=== PATIENT | male | born 1965 | race Caucasian/White ===

== ENCOUNTER 2019-03-21 09:03 | Inpatient (IN) | payer OTHER ==
[2019-03-21 10:59] VITALS: BMI 25.0
--- NOTE | 2019-03-21 13:38 | HP ---
COWS - Scale Resting Pulse: 0= [place] 80 or Below Restless Observation: 1= Difficult to Sit Still Pupil Size: 1= Pupils >than Normal Bone or Joint Aches: 2= Severe Diffuse Aches Runny Nose/ Eye Tearin= Runny Nose/Eyes GI Upset > 30mins: 1= Stomach Cramp Tremor Observation: 2= Slight Tremor Visible Yawning Observation: 1= 1-2x During Session Anxiety or Irritability: 2=Irritable/Anxious Goose Flesh Skin: 0=Smooth Skin CIWA Score Nausea/Vomitin Muscle Tremors: 3 Anxiety: 2 Agitation: 1-Slight > Activity Paroxysmal Sweats: 2 Orientation: 0-Oriented Tacttile Disturbances: 1-Very Mild Itch/Numbness Auditory Disturbances: 0-None Visual Disturbances: 2-Mild Sensitivity Headache: 0-None Present CIWA-Ar Total Score: 13 - Admission Criteria OASAS Guidelines: Admission for Medically Managed Detox: Requires at least one of the followin. CIWA greater than 12 2. Seizures within the past 24 hours 3. Delirium tremens within the past 24 hours 4. Hallucinations within the past 24 hours 5. Acute intervention needed for co occurring medical disorder 6. Acute intervention needed for co occurring psychiatric disorder 7. Severe withdrawal that cannot be handled at a lower level of care (continued vomiting, continued diarrhea, abnormal vital signs) requiring intravenous medication and/or fluids 8. Patient presents the following: CIWA greater than 12 Admission Criteria Met: Admission criteria met Admission ROS [facility] Chief Complaint: i gotta get clean Allergies/Adverse Reactions: Allergies Allergy/AdvReac Type Severity Reaction Status Date / Time No Known Allergies Allergy Verified 03/21/19 10:52 History of Present Illness: [place] has been using 15-20 bags heroin daily iv 2 y ago was abstinent x 1 month sp detox is contemplating methadone began using heroin 3 y ago, previously used rx opiates cocaine and etoh use since age [age] periodically felt problematic Exam Limitations: No Limitations - Ebola screening Have you traveled outside of the country in the last 21 days: No Have you had contact with anyone from an Ebola affected area: No - Review of Systems Constitutional: Chills, Malaise EENT: reports: No Symptoms Reported Respiratory: reports: No Symptoms reported Cardiac: reports: No Symptoms Reported GI: reports: Diarrhea, Nausea : reports: No Symptoms Reported Musculoskeletal: reports: Joint Pain Integumentary: reports: Other (r ac tract) Neuro: reports: No Symptoms reported Endocrine: reports: No Symptoms Reported Hematology: reports: No Symptoms Reported Psychiatric: reports: Anxious Patient History - Patient Medical History Hx Anemia: No Hx Asthma: No Hx Chronic Obstructive Pulmonary Disease (COPD): No Hx Cancer: No Hx Cardiac Disorders: No Hx Congestive Heart Failure: No Hx Hypertension: No Hx Hypercholesterolemia: No Hx Pacemaker: No HX Cerebrovascular Accident: No Hx Seizures: No Hx Dementia: No Hx Diabetes: No Hx Gastrointestinal Disorders: No Hx Liver Disease: No Hx Genitourinary Disorders: No Hx Sexually Transmitted Disorders: No Hx Renal Disease (ESRD): No Hx Thyroid Disease: No Hx Human Immunodeficiency Virus (HIV): No Hx Hepatitis C: No Hx Depression: No Hx Suicide Attempt: No Hx Bipolar Disorder: No Hx Schizophrenia: No - Patient Surgical History Past Surgical History: Yes Hx Orthopedic Surgery: Yes (fusion) - PPD History Previous Implant?: Yes Documented Results: Negative w/o proof - Smoking Cessation Smoking history: Current every day smoker Have you smoked in the past 12 months: Yes Aproximately how many cigarettes per day: 30 Initiated information on smoking cessation: Yes 'Breaking Loose' booklet given: 03/21/19 - Substance & Tx. History Hx Alcohol Use: Yes Hx Substance Use: Yes Substance Use Type: Alcohol, Cocaine, Opiates Hx Substance Use Treatment: Yes (several detox, mmtp x 1) - Substances abused Alcohol Substance route: Oral Frequency: Daily Amount used: 1 pint vodka Age of first use: 15 Date of last use: 03/21/19 Heroin Substance route: Injection Frequency: Daily Amount used: 15-20 bags Age of first use: 48 Date of last use: 03/21/19 Family Disease History - Family Disease History Family Disease History: Other: Father (etoh abstinent), Brother (danielle) Admission Physical Exam BHS - Vital Signs Vital Signs: Vital Signs - 24 hr 03/21/19 10:53 Temperature 97.3 F L Pulse Rate 68 Respiratory 17 Rate Blood Pressure 116/82 - Physical General Appearance: Yes: No Apparent Distress, Irritable, Sweating, Anxious HEENTM: Yes: EOMI, Normocephalic Respiratory: Yes: Chest Non-Tender, Lungs Clear Neck: Yes: Within Normal Limits Breast: Yes: Breast Exam Deferred Cardiology: Yes: Regular Rhythm, Regular Rate, S1, S2 Abdominal: Yes: Within Normal Limits Genitourinary: Yes: Other (def) Back: Yes: Within Normal Limits Musculoskeletal: Yes: Within Normal Limits Extremities: Yes: Within Normal Limits 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
[2019-03-21] MEDS ORDERED: BISMUTH SUBSALICYLATE 262 MG/15 ML BTL PO PRN (13:49)
[2019-03-21] MEDS ORDERED: METHOCARBAMOL 500 MG TABLET PO PRN (13:49)
[2019-03-21] MEDS ORDERED: MENTHOL/PHENOL 1 EACH UD MM PRN (13:49)
[2019-03-21] MEDS ORDERED: chlordiazePOXIDE HCL 25 MG CAPSULE PO PRN (13:49)
[2019-03-21] MEDS ORDERED: MAGNESIUM HYDROX 2400MG/30ML ORAL SUSPENSION 30 ML CUP PO PRN (13:49)
[2019-03-21] MEDS ORDERED: ACETAMINOPHEN 325 MG TABLET (FP) PO PRN ×2 (13:49)
[2019-03-21] MEDS ORDERED: cloNIDine HCL 0.1 MG TABLET PO PRN (13:49)
[2019-03-21] MEDS ORDERED: hydrOXYzine HCL 25 MG TABLET (FP) PO PRN (13:49)
[2019-03-21] MEDS ORDERED: IBUPROFEN 400 MG TABLET (FP) PO PRN (13:49)
[2019-03-21] MEDS ORDERED: MAG HYDROX/AL HYDROX/SIMETH 30 ML UNIT-DOSE CUP PO PRN (13:49)
[2019-03-21] MEDS ORDERED: MAGNESIUM CITRATE 300 ML BOTTLE PO PRN (13:49)
[2019-03-21] MEDS ORDERED: METHADONE HCL 10 MG TABLET (FOR DETOX USE ONLY) PO ONE (14:35)
[2019-03-21] MEDS: chlordiazePOXIDE HCL 25 MG CAPSULE PO SCH ×2 (17:53→22:25)
[2019-03-21] MEDS: THIAMINE HCL 100 MG TABLET (FP) PO SCH (22:25)
[2019-03-21] MEDS: MELATONIN 5 MG TABLETS PO PRN (22:26)
[2019-03-22] MEDS: chlordiazePOXIDE HCL 25 MG CAPSULE PO SCH ×4 (05:13→23:08)
[2019-03-22] MEDS ORDERED: METHADONE HCL 10 MG TABLET (FOR DETOX USE ONLY) ONE (09:30)
[2019-03-22] MEDS ORDERED: METHADONE HCL 5 MG TABLET (FOR DETOX USE ONLY) ONE (09:30)
--- NOTE | 2019-03-22 09:56 | PN ---
[facility] CIWA - CIWA Score Nausea/Vomitin-Mild Nausea/No Vomiting Muscle Tremors: 2 Anxiety: 3 Agitation: 1-Slight > Activity Paroxysmal Sweats: 3 Orientation: 0-Oriented Tacttile Disturbances: 2-Mild Itch/Numbness/Burn Auditory Disturbances: 0-None Visual Disturbances: 0-None Headache: 0-None Present CIWA-Ar Total Score: 12 [facility] COWS - Scale Resting Pulse: 0= [place] 80 or Below Sweatin= Chills/Flushing Restless Observation: 1= Difficult to Sit Still Pupil Size: 1= Pupils >than Normal Bone or Joint Aches: 2= Severe Diffuse Aches Runny Nose/ Eye Tearin= Nasal Congestion GI Upset > 30mins: 1= Stomach Cramp Tremor Observation of Outstretched Hands: 2= Slight Tremor Visible Yawning Observation: 0= None Anxiety or Irritability: 2=Irritable/Anxious Goose Flesh Skin: 0=Smooth Skin COWS Score: 11 [facility] Progress Note (SOAP) Subjective: interrupted sleep, sweats , shakes, lbp, achy Objective: 03/22/19 09:54 Vital Signs Temperature 98.1 F 03/22/19 09:16 Pulse Rate 71 03/22/19 09:16 Respiratory Rate 18 03/22/19 09:16 Blood Pressure 107/60 03/22/19 09:16 O2 Sat by Pulse Oximetry (%) labs pending pt aox3 , lying in bed appearing uncomfortable Assessment: 03/22/19 09:56 withdrawal sx's lbp Plan: cont. detox increase fluids lidocaine patch/d motrin prn flexeril
[2019-03-22] MEDS ORDERED: METHADONE (DETOX) 20 MG, METHADONE (DETOX) 5 MG PO ONE (10:00)
[2019-03-22] MEDS: PRENATAL VITAMINS W/ FOLIC ACID TABLET (FP) PO SCH (10:42)
[2019-03-22] MEDS: LIDOCAINE 5% TOPICAL PATCH TP SCH (11:08)
[2019-03-22 12:16] LABS: ALBUMIN 3.7 g/dl (3.4-5.0); BILIRUBIN,TOTAL 0.6 mg/dL (0.2-1); BLOOD UREA NITROGEN 14.6 mg/dL (7-18); CALCIUM 9.5 mg/dL (8.5-10.1); CREATININE 0.8 mg/dL (0.55-1.3)
[2019-03-22 12:17] LABS: HEMATOCRIT 41.9 % (35.4-49); HEMOGLOBIN 14.5 GM/dL (11.7-16.9); MCH 29.5 pg (25.7-33.7); MCHC 34.6 g/dl (32.0-35.9); MEAN CELL VOLUME 85.3 fl (80-96); MEAN PLT VOLUME 8.3 fl (7.5-11.1); PLATELET COUNT 366 K/MM3 (134-434); RBC 4.91 M/mm3 (4.00-5.60); RDW 13.4 % (11.9-15.9)
[2019-03-22] MEDS ORDERED: CYCLOBENZAPRINE HCL 5 MG TABLET PO SCH (14:00)
[2019-03-22] MEDS: THIAMINE HCL 100 MG TABLET (FP) PO SCH (23:08)
[2019-03-22] MEDS: LIDOCAINE PATCH REMOVAL MC SCH (23:09)
[2019-03-23] MEDS: chlordiazePOXIDE HCL 25 MG CAPSULE PO SCH ×4 (05:39→22:54)
[2019-03-23] MEDS ORDERED: METHADONE HCL 10 MG TABLET (FOR DETOX USE ONLY) PO ONE (10:00)
[2019-03-23] MEDS: PRENATAL VITAMINS W/ FOLIC ACID TABLET (FP) PO SCH (10:04)
[2019-03-23] MEDS: LIDOCAINE 5% TOPICAL PATCH TP SCH (10:04)
--- NOTE | 2019-03-23 11:26 | PN ---
S CIWA - CIWA Score Nausea/Vomitin-No Nausea/No Vomiting Muscle Tremors: 2 Anxiety: 2 Agitation: 0-Normal Activity Paroxysmal Sweats: 3 Orientation: 0-Oriented Tacttile Disturbances: 0-None Auditory Disturbances: 0-None Visual Disturbances: 0-None Headache: 2-Mild CIWA-Ar Total Score: 9 S COWS - Scale Resting Pulse: 0= [place] 80 or Below Sweatin= Beads of Sweat on Face Restless Observation: 1= Difficult to Sit Still Pupil Size: 0= Normal to Room Light Bone or Joint Aches: 0= None Runny Nose/ Eye Tearin= None GI Upset > 30mins: 0= None Tremor Observation of Outstretched Hands: 2= Slight Tremor Visible Yawning Observation: 1= 1-2x During Session Anxiety or Irritability: 2=Irritable/Anxious Goose Flesh Skin: 0=Smooth Skin COWS Score: 9 S Progress Note (SOAP) Subjective: c/o sweats, anxiety/irritability, headache, and shakes. Objective: 03/23/19 11:26 Vital Signs 03/23/19 03/23/19 03/23/19 03:30 08:14 09:40 Temperature 97.7 F 97.3 F L Pulse Rate 67 76 Respiratory 18 18 18 Rate Blood Pressure 122/60 121/77 Lab Results WBC 8.0 K/mm3 (4.0-10.0) 03/22/19 07:00 RBC 4.91 M/mm3 (4.00-5.60) 03/22/19 07:00 Hgb 14.5 GM/dL (11.7-16.9) 03/22/19 07:00 Hct 41.9 % (35.4-49) 03/22/19 07:00 MCV 85.3 fl (80-96) 03/22/19 07:00 MCHC 34.6 g/dl (32.0-35.9) 03/22/19 07:00 RDW 13.4 % (11.9-15.9) 03/22/19 07:00 Plt Count 366 K/MM3 (134-434) 03/22/19 07:00 Sodium 143 mmol/L (136-145) 03/22/19 07:00 Potassium 4.0 mmol/L (3.5-5.1) 03/22/19 07:00 Chloride 110 mmol/L (98-107) H 03/22/19 07:00 Carbon Dioxide 27 mmol/L (21-32) 03/22/19 07:00 Anion Gap 6 MMOL/L (8-16) L 03/22/19 07:00 BUN 14.6 mg/dL (7-18) 03/22/19 07:00 Creatinine 0.8 mg/dL (0.55-1.3) 03/22/19 07:00 Random Glucose 105 mg/dL (74-106) 03/22/19 07:00 Calcium 9.5 mg/dL (8.5-10.1) 03/22/19 07:00 Labs noted. Assessment: 03/23/19 11:26 AOX3, in no acute distress. Full ROM, ambulating in the unit. withdrawal symptoms. Plan: continue detox.
[2019-03-23] MEDS: LIDOCAINE PATCH REMOVAL MC SCH (22:53)
[2019-03-23] MEDS: MELATONIN 5 MG TABLETS PO PRN (22:54)
[2019-03-23] MEDS: THIAMINE HCL 100 MG TABLET (FP) PO SCH (22:54)
[2019-03-24] MEDS ORDERED: chlordiazePOXIDE HCL 10 MG CAPSULE PO PRN
[2019-03-24] MEDS: MELATONIN 5 MG TABLETS PO PRN (01:35)
[2019-03-24] MEDS: chlordiazePOXIDE HCL 10 MG CAPSULE PO SCH ×4 (06:09→22:27)
[2019-03-24] MEDS ORDERED: METHADONE HCL 10 MG TABLET (FOR DETOX USE ONLY) ONE (09:04)
[2019-03-24] MEDS ORDERED: METHADONE HCL 5 MG TABLET (FOR DETOX USE ONLY) ONE (09:04)
[2019-03-24] MEDS ORDERED: METHADONE (DETOX) 10 MG, METHADONE (DETOX) 5 MG PO ONE (10:00)
[2019-03-24] MEDS: PRENATAL VITAMINS W/ FOLIC ACID TABLET (FP) PO SCH (10:35)
[2019-03-24] MEDS: LIDOCAINE 5% TOPICAL PATCH TP SCH (10:35)
--- NOTE | 2019-03-24 13:17 | PN ---
[facility] COWS - Scale Resting Pulse: 0= [place] 80 or Below Sweatin= Chills/Flushing Restless Observation: 1= Difficult to Sit Still Pupil Size: 2= Moderately Dilated Bone or Joint Aches: 1= Mild Discomfort Runny Nose/ Eye Tearin= Nasal Congestion GI Upset > 30mins: 0= None Tremor Observation of Outstretched Hands: 1= Tremor [place], Not Seen Yawning Observation: 0= None Anxiety or Irritability: 2=Irritable/Anxious Goose Flesh Skin: 0=Smooth Skin COWS Score: 9 [facility] Progress Note (SOAP) Subjective: Patient c/o chills, anxiety, feeling tired and body aches. Objective: 03/24/19 13:16 Vital Signs Temperature 96.8 F L 03/24/19 09:35 Pulse Rate 60 03/24/19 09:35 Respiratory Rate 18 03/24/19 09:35 Blood Pressure 100/68 03/24/19 09:35 O2 Sat by Pulse Oximetry (%) Laboratory Tests 03/22/19 03/22/19 03/22/19 07:00 07:00 07:00 WBC 8.0 RBC 4.91 Hgb 14.5 Hct 41.9 MCV 85.3 MCH 29.5 MCHC 34.6 RDW 13.4 Plt Count 366 MPV 8.3 Sodium 143 Potassium 4.0 Chloride 110 H Carbon Dioxide 27 Anion Gap 6 L BUN 14.6 Creatinine 0.8 Est GFR (CKD-EPI)AfAm 119.88 Est GFR (CKD-EPI)NonAf 103.43 Random Glucose 105 Calcium 9.5 Total Bilirubin 0.6 AST 12 L ALT 20 Alkaline Phosphatase 83 Total Protein 7.0 Albumin 3.7 RPR Titer Nonreactive PE: alert and oriented x 3 skin warm, mild facial moisture pupils moderately dilated, eoms intact bl ext full rom, mild tremors amb ad cheko Assessment: 03/24/19 13:17 withdrawal sx Plan: continue detox encourage fluids monitor
[2019-03-24] MEDS: LIDOCAINE PATCH REMOVAL MC SCH (22:27)
[2019-03-24] MEDS: THIAMINE HCL 100 MG TABLET (FP) PO SCH (22:27)
[2019-03-25] MEDS ORDERED: chlordiazePOXIDE HCL 10 MG CAPSULE PO SCH (05:00)
[2019-03-25 09:20] VITALS: BP 109/72; PULSE 70; TEMP 97.7
--- NOTE | 2019-03-25 09:57 | PN ---
S Progress Note Note: pt arrived in withdrawals pt c/o of withdrawals symptoms and aggressive symptomatic management attempted however, pt in spite of extensive motivational counseling regarding the risk of relapse, seizures, DT, OD and or loss, pt chose to sign out AMA.
[2019-03-25] MEDS ORDERED: METHADONE HCL 10 MG TABLET (FOR DETOX USE ONLY) PO ONE (10:00)
--- NOTE | 2019-03-25 10:00 | DS ---
[facility] Detox Discharge Summary Admission Date: 03/21/19 - History Present History: Alcohol Dependence, Opioid Dependence - Physical Exam Results Vital Signs: Vital Signs Temperature 97.7 F 03/25/19 09:19 Pulse Rate 70 03/25/19 09:19 Respiratory Rate 18 03/25/19 09:19 Blood Pressure 109/72 03/25/19 09:19 O2 Sat by Pulse Oximetry (%) Pertinent Admission Physical Exam Findings: pt arrived in withdrawals Laboratory Tests 03/22/19 03/22/19 03/22/19 07:00 07:00 07:00 WBC 8.0 RBC 4.91 Hgb 14.5 Hct 41.9 MCV 85.3 MCH 29.5 MCHC 34.6 RDW 13.4 Plt Count 366 MPV 8.3 Sodium 143 Potassium 4.0 Chloride 110 H Carbon Dioxide 27 Anion Gap 6 L BUN 14.6 Creatinine 0.8 Est GFR (CKD-EPI)AfAm 119.88 Est GFR (CKD-EPI)NonAf 103.43 Random Glucose 105 Calcium 9.5 Total Bilirubin 0.6 AST 12 L ALT 20 Alkaline Phosphatase 83 Total Protein 7.0 Albumin 3.7 RPR Titer Nonreactive today pt is aaox3 very little shakes noted pt signed out ama - Treatment Patient has Accepted a Rehab Referral to: pt declined rehab; referral provided - Medication Discharge Medications: Ambulatory Orders NK [No Known Home Medication] 03/21/19 - Diagnosis (1) Alcohol dependence with uncomplicated withdrawal Current Visit: Yes Status: Chronic (2) Opioid dependence with withdrawal Current Visit: Yes Status: Chronic - AMA Did Patient Leave Against Medical Advice: Yes (going home; declined aftercare referral provided)
[2019-03-25] MEDS ORDERED: ONDANSETRON *ODT* 4 MG TABLET SL PRN (10:54)
[2019-03-26] MEDS ORDERED: chlordiazePOXIDE HCL 10 MG CAPSULE PO ONE (05:00)
[2019-03-26] MEDS ORDERED: METHADONE HCL 5 MG TABLET (FOR DETOX USE ONLY) PO ONE (06:00)
== END 2019-03-25 09:55 | disposition left against medical advice (07) | DRG 770 ==
LOC: YASAS 09:03 → Y6N 14:30
PROVIDERS: ADMIT Surgery; ATTEND Surgery
PROC: HZ2ZZZZ Detoxification Services for Substance Abuse Treatment (ICD-10-PCS; principal; 2019-03-21)
DX: F11.23 Opioid dependence with withdrawal (principal); F10.230 Alcohol dependence with withdrawal, uncomplicated; F17.210 Nicotine dependence, cigarettes, uncomplicated; M54.5 Low back pain
CPT/HCPCS: 36415; 80053; 85027; 86593

== ENCOUNTER 2022-01-18 11:51 | Inpatient (IN) | payer OTHER ==
[2022-01-18] MEDS ORDERED: BENZOCAINE/MENTHOL (CHLORASEPTIC ) LOZENGE MM PRN (13:19)
[2022-01-18] MEDS ORDERED: MAGNESIUM CITRATE 300 ML BOTTLE PO PRN (13:19)
[2022-01-18] MEDS ORDERED: ACETAMINOPHEN 325 MG TABLET (FP) PO PRN ×2 (13:19)
[2022-01-18] MEDS ORDERED: LOPERAMIDE HCL 2 MG CAPSULE PO PRN (13:19)
[2022-01-18] MEDS ORDERED: ONDANSETRON *ODT* 4 MG TABLET SL PRN (13:19)
[2022-01-18] MEDS ORDERED: BISMUTH SUBSALICYLATE 262 MG/15 ML BTL PO PRN (13:19)
[2022-01-18] MEDS ORDERED: MAG HYDROX/AL HYDROX/SIMETH 30 ML UNIT-DOSE CUP PO PRN (13:19)
[2022-01-18] MEDS ORDERED: IBUPROFEN 400 MG TABLET (FP) PO PRN (13:19)
[2022-01-18] MEDS ORDERED: MAGNESIUM HYDROX 2400MG/30ML ORAL SUSPENSION 30 ML CUP PO PRN (13:19)
[2022-01-18] MEDS ORDERED: DICYCLOMINE HCL 10 MG CAPSULE PO PRN (13:19)
[2022-01-18] MEDS ORDERED: methaDONE HCL 10 MG TABLET (FOR DETOX USE ONLY) PO ONE (14:15)
[2022-01-18 15:44] VITALS: BMI 22.8
[2022-01-18] MEDS: METHOCARBAMOL 500 MG TABLET PO PRN (17:00)
[2022-01-18] MEDS: cloNIDine HCL 0.1 MG TABLET PO PRN (17:00)
[2022-01-18] MEDS: PRENATAL VITAMINS W/ FOLIC ACID TABLET (FP) PO SCH (17:01)
[2022-01-18] MEDS: hydrOXYzine PAMOATE 25 MG CAPSULE (FP) PO SCH ×3 (17:01→23:07)
[2022-01-18] MEDS: NICOTINE 14 MG/24 HOURS TOPICAL PATCH TD SCH (17:05)
[2022-01-18] MEDS: MELATONIN 5 MG TABLETS PO SCH (23:07)
[2022-01-18] MEDS: THIAMINE HCL 100 MG TABLET (FP) PO SCH (23:08)
[2022-01-19] MEDS: hydrOXYzine PAMOATE 25 MG CAPSULE (FP) PO SCH ×5 (06:30→22:52)
[2022-01-19] MEDS ORDERED: methaDONE HCL 10 MG TABLET (FOR DETOX USE ONLY) ONE (09:22)
[2022-01-19 09:38] LABS: HEMATOCRIT 36.7 % (35.4-49); HEMOGLOBIN 12.5 GM/dL (11.7-16.9); MCH 27.8 pg (25.7-33.7); MCHC 34.2 g/dl (32.0-35.9); MEAN CELL VOLUME 81.3 fl (80-96); MEAN PLT VOLUME 8.8 fl (7.5-11.1); PLATELET COUNT 313 10^3/uL (134-434); RBC 4.51 M/mm3 (4.00-5.60); RDW 15.4 % (11.9-15.9); WHITE BLOOD COUNT 8.3 K/mm3 (4.0-10.0)
[2022-01-19 09:49] LABS: ALBUMIN 3.6 g/dl (3.4-5.0)
[2022-01-19 09:51] LABS: CALCIUM 8.6 mg/dL (8.5-10.1)
[2022-01-19 09:52] LABS: BLOOD UREA NITROGEN 20.8 mg/dL (7-18)
[2022-01-19 09:55] LABS: BILIRUBIN,TOTAL 0.2 mg/dL (0.2-1); CREATININE 0.7 mg/dL (0.55-1.3); TOT PROT 6.6 g/dl (6.4-8.2)
[2022-01-19] MEDS: NICOTINE 14 MG/24 HOURS TOPICAL PATCH TD SCH (10:08)
[2022-01-19] MEDS: PRENATAL VITAMINS W/ FOLIC ACID TABLET (FP) PO SCH (10:08)
[2022-01-19] MEDS: diazePAM 5 MG TABLET PO PRN (10:09)
[2022-01-19] MEDS: MELATONIN 5 MG TABLETS PO SCH (22:52)
[2022-01-19] MEDS: THIAMINE HCL 100 MG TABLET (FP) PO SCH (22:52)
[2022-01-20] MEDS: hydrOXYzine PAMOATE 25 MG CAPSULE (FP) PO SCH ×5 (05:41→23:13)
[2022-01-20] MEDS: diazePAM 5 MG TABLET PO PRN ×3 (05:41→18:13)
[2022-01-20] MEDS: cloNIDine HCL 0.1 MG TABLET PO PRN (05:45)
[2022-01-20] MEDS ORDERED: methaDONE HCL 10 MG TABLET (FOR DETOX USE ONLY) PO ONE (10:00)
[2022-01-20] MEDS: METHOCARBAMOL 500 MG TABLET PO PRN (10:40)
[2022-01-20] MEDS: PRENATAL VITAMINS W/ FOLIC ACID TABLET (FP) PO SCH (10:43)
[2022-01-20] MEDS: NICOTINE 14 MG/24 HOURS TOPICAL PATCH TD SCH (10:45)
[2022-01-20 10:54] LABS: BLOOD UREA NITROGEN 15.2 mg/dL (7-18)
[2022-01-20 16:10] LABS: SARS-CoV-2 NAA Not Detected (Not Detected)
[2022-01-20] MEDS: THIAMINE HCL 100 MG TABLET (FP) PO SCH (23:13)
[2022-01-20] MEDS: MELATONIN 5 MG TABLETS PO SCH (23:13)
[2022-01-21] MEDS: hydrOXYzine PAMOATE 25 MG CAPSULE (FP) PO SCH ×5 (06:11→22:11)
[2022-01-21] MEDS: diazePAM 5 MG TABLET PO PRN (06:13)
[2022-01-21] MEDS ORDERED: methaDONE HCL 10 MG TABLET (FOR DETOX USE ONLY) ONE (09:18)
[2022-01-21] MEDS: METHOCARBAMOL 500 MG TABLET PO PRN (10:10)
[2022-01-21] MEDS: PRENATAL VITAMINS W/ FOLIC ACID TABLET (FP) PO SCH (10:11)
[2022-01-21] MEDS: NICOTINE 14 MG/24 HOURS TOPICAL PATCH TD SCH (10:11)
[2022-01-21] MEDS: NICOTINE 10 MG CARTRIDGE (INHALER) IH PRN (13:08)
[2022-01-21] MEDS: MELATONIN 5 MG TABLETS PO SCH (22:11)
[2022-01-21] MEDS: THIAMINE HCL 100 MG TABLET (FP) PO SCH (22:11)
[2022-01-22] MEDS: diazePAM 5 MG TABLET PO PRN (06:01)
[2022-01-22] MEDS: METHOCARBAMOL 500 MG TABLET PO PRN ×2 (06:01→11:01)
[2022-01-22] MEDS: hydrOXYzine PAMOATE 25 MG CAPSULE (FP) PO SCH ×5 (06:01→22:03)
[2022-01-22] MEDS ORDERED: methaDONE HCL 10 MG TABLET (FOR DETOX USE ONLY) PO ONE (10:00)
[2022-01-22] MEDS: PRENATAL VITAMINS W/ FOLIC ACID TABLET (FP) PO SCH (10:25)
[2022-01-22] MEDS: NICOTINE 10 MG CARTRIDGE (INHALER) IH PRN (10:28)
[2022-01-22] MEDS: NICOTINE 14 MG/24 HOURS TOPICAL PATCH TD SCH (10:28)
[2022-01-22] MEDS: MELATONIN 5 MG TABLETS PO SCH (22:02)
[2022-01-22] MEDS: THIAMINE HCL 100 MG TABLET (FP) PO SCH (22:03)
[2022-01-23] MEDS: hydrOXYzine PAMOATE 25 MG CAPSULE (FP) PO SCH (05:22)
[2022-01-23] MEDS: METHOCARBAMOL 500 MG TABLET PO PRN (05:23)
[2022-01-23 08:53] VITALS: BP 104/68; PULSE 75; TEMP 97.7
== END 2022-01-23 08:59 | disposition home or self-care (01) | DRG 773 ==
LOC: YASAS 11:51 → Y3N 15:00
PROVIDERS: ADMIT Allergy & Immunology; ATTEND Surgery
PROC: HZ2ZZZZ Detoxification Services for Substance Abuse Treatment (ICD-10-PCS; principal; 2022-01-18)
DX: F11.23 Opioid dependence with withdrawal (principal); F10.230 Alcohol dependence with withdrawal, uncomplicated; F17.210 Nicotine dependence, cigarettes, uncomplicated; F19.282 Other psychoactive substance dependence with psychoactive substance-induced sleep disorder; F19.24 Other psychoactive substance dependence with psychoactive substance-induced mood disorder; F32.A Depression, unspecified
CPT/HCPCS: 36415; 73110-TC-LT-FY; 80053; 82947; 83036; 84520; 85027; 86780; 93005; 93010; C9803-CS; J0735; U0003; U0005

== ENCOUNTER 2023-09-29 21:34 | Inpatient (IN) | payer OTHER ==
[2023-09-29 22:44] VITALS: BMI 21.9
[2023-09-29] MEDS ORDERED: BENZONATATE 200 MG CAPSULE PO PRN (23:18)
[2023-09-29] MEDS ORDERED: NALOXONE HCL 0.4 MG/ML VIAL IM PRN (23:18)
[2023-09-29] MEDS ORDERED: MAGNESIUM HYDROX 2400MG/30ML ORAL SUSPENSION 30 ML CUP PO PRN (23:18)
[2023-09-29] MEDS ORDERED: LOPERAMIDE HCL 2 MG CAPSULE PO PRN (23:18)
[2023-09-29] MEDS ORDERED: POLYETHYLENE GLYCOL (HEALTHYLAX) 3350 17 GM PACKET PO PRN (23:18)
[2023-09-29] MEDS ORDERED: NICOTINE POLACRILEX 2 MG GUM BUC PRN (23:18)
[2023-09-29] MEDS ORDERED: P-EPHED 60MG/TRIPROLIDI 2.5MG TABLET PO PRN (23:18)
[2023-09-29] MEDS ORDERED: ONDANSETRON *ODT* 4 MG TABLET SL PRN (23:18)
[2023-09-29] MEDS ORDERED: DOCUSATE SODIUM 100 MG CAPSULE (FP) PO PRN (23:18)
[2023-09-29] MEDS ORDERED: MAG HYDROX/AL HYDROX/SIMETH 30 ML UNIT-DOSE CUP PO PRN (23:18)
[2023-09-29] MEDS ORDERED: guaiFENesin 600 MG TABLET.ER (FP) PO PRN (23:18)
[2023-09-29] MEDS ORDERED: NALOXONE HCL (KLOXXADO) 8 MG SPRAY NS PRN (23:18)
[2023-09-29] MEDS ORDERED: IBUPROFEN 400 MG TABLET (FP) PO PRN (23:18)
[2023-09-29] MEDS ORDERED: ACETAMINOPHEN 325 MG TABLET (FP) PO PRN (23:18)
[2023-09-29] MEDS ORDERED: DICYCLOMINE HCL 10 MG CAPSULE PO PRN (23:18)
[2023-09-29] MEDS ORDERED: BENZOCAINE/MENTHOL (CHLORASEPTIC ) LOZENGE MM PRN (23:18)
[2023-09-29] MEDS ORDERED: BISMUTH SUBSALICYLATE 524 MG/30 ML PO PRN (23:18)
[2023-09-30] MEDS: SULFAMETHOXAZOLE/TRIMETHOPRIM 800MG/160MG D.S. TABLET PO SCH ×3 (01:02→22:07)
[2023-09-30] MEDS: PRENATAL VITAMINS W/ FOLIC ACID TABLET (FP) PO SCH (10:14)
[2023-09-30] MEDS ORDERED: cloNIDine HCL 0.1 MG TABLET PO PRN (10:26)
[2023-09-30 11:18] LABS: HEMATOCRIT 37.9 % (35.4-49); HEMOGLOBIN 12.5 GM/dL (11.7-16.9); MCH 27.2 pg (25.7-33.7); MEAN CELL VOLUME 82.3 fl (80-96); MEAN PLT VOLUME 8.5 fl (7.5-11.1); PLATELET COUNT 295 10^3/uL (134-434); RBC 4.61 M/mm3 (4.00-5.60); WHITE BLOOD COUNT 7.1 K/mm3 (4.0-10.0)
[2023-09-30] MEDS ORDERED: methaDONE HCL 10 MG TABLET (FOR DETOX USE ONLY) PO ONE (11:30)
[2023-09-30] MEDS: METHOCARBAMOL 500 MG TABLET PO PRN ×2 (11:40→22:07)
[2023-09-30] MEDS: hydrOXYzine PAMOATE 25 MG CAPSULE (FP) PO PRN (11:40)
[2023-09-30 11:45] LABS: POTASSIUM 4.4 mmol/L (3.5-5.1)
[2023-09-30 11:48] LABS: CALCIUM 9.9 mg/dL (8.5-10.1)
[2023-09-30 11:49] LABS: ALBUMIN 3.3 g/dl (3.4-5.0); BLOOD UREA NITROGEN 10.7 mg/dL (7-18)
[2023-09-30 11:52] LABS: CREATININE 0.7 mg/dL (0.55-1.3)
[2023-09-30 11:53] LABS: BILIRUBIN,TOTAL 0.3 mg/dL (0.2-1)
[2023-09-30] MEDS ORDERED: MELATONIN 5 MG TABLETS PO SCH (22:00)
[2023-09-30] MEDS: diazePAM 5 MG TABLET PO PRN (22:07)
[2023-09-30] MEDS: THIAMINE HCL 100 MG TABLET (FP) PO SCH (22:07)
[2023-09-30] MEDS: traZODone HCL 50 MG TABLET (FP) PO SCH (22:08)
[2023-10-01] MEDS: PRENATAL VITAMINS W/ FOLIC ACID TABLET (FP) PO SCH (10:05)
[2023-10-01] MEDS: SULFAMETHOXAZOLE/TRIMETHOPRIM 800MG/160MG D.S. TABLET PO SCH ×2 (10:05→22:10)
[2023-10-01] MEDS: IBUPROFEN 600 MG TABLET (FP) PO PRN (17:09)
[2023-10-01] MEDS: diazePAM 5 MG TABLET PO PRN (17:09)
[2023-10-01] MEDS: traZODone HCL 50 MG TABLET (FP) PO SCH (22:10)
[2023-10-01] MEDS: THIAMINE HCL 100 MG TABLET (FP) PO SCH (22:10)
[2023-10-02] MEDS ORDERED: TRIMETHOBENZAMIDE HCL 200MG/2ML INJ IM ONE (05:05)
[2023-10-02] MEDS ORDERED: methaDONE HCL 10 MG TABLET (FOR DETOX USE ONLY) PO ONE (10:00)
[2023-10-02] MEDS: SULFAMETHOXAZOLE/TRIMETHOPRIM 800MG/160MG D.S. TABLET PO SCH ×2 (10:04→22:15)
[2023-10-02] MEDS: PRENATAL VITAMINS W/ FOLIC ACID TABLET (FP) PO SCH (10:04)
[2023-10-02] MEDS: IBUPROFEN 600 MG TABLET (FP) PO PRN (10:06)
[2023-10-02] MEDS: METHOCARBAMOL 500 MG TABLET PO PRN (10:06)
[2023-10-02] MEDS ORDERED: TRIMETHOBENZAMIDE HCL 200MG/2ML INJ IM PRN (10:27)
[2023-10-02] MEDS: FAMOTIDINE 20 MG TABLET PO SCH (10:37)
[2023-10-02] MEDS ORDERED: ACETAMINOPHEN 325 MG TABLET (FP) PO ONE (17:27)
[2023-10-02] MEDS: BENZOCAINE 20 % GEL TUBE MM PRN (18:13)
[2023-10-02] MEDS: THIAMINE HCL 100 MG TABLET (FP) PO SCH (22:15)
[2023-10-02] MEDS: traZODone HCL 50 MG TABLET (FP) PO SCH (22:15)
[2023-10-03] MEDS: METHOCARBAMOL 500 MG TABLET PO PRN ×2 (05:19→22:11)
[2023-10-03] MEDS: BENZOCAINE 20 % GEL TUBE MM PRN ×2 (10:04→22:11)
[2023-10-03] MEDS: SULFAMETHOXAZOLE/TRIMETHOPRIM 800MG/160MG D.S. TABLET PO SCH ×2 (10:05→22:11)
[2023-10-03] MEDS: FAMOTIDINE 20 MG TABLET PO SCH (10:06)
[2023-10-03] MEDS: PRENATAL VITAMINS W/ FOLIC ACID TABLET (FP) PO SCH (10:06)
[2023-10-03] MEDS: THIAMINE HCL 100 MG TABLET (FP) PO SCH (22:11)
[2023-10-03] MEDS: traZODone HCL 50 MG TABLET (FP) PO SCH (22:11)
[2023-10-03] MEDS: hydrOXYzine PAMOATE 25 MG CAPSULE (FP) PO PRN (22:11)
[2023-10-03] MEDS: IBUPROFEN 600 MG TABLET (FP) PO PRN (22:11)
[2023-10-04] MEDS: hydrOXYzine PAMOATE 25 MG CAPSULE (FP) PO PRN (06:00)
[2023-10-04] MEDS ORDERED: methaDONE HCL 10 MG TABLET (FOR DETOX USE ONLY) PO ONE (10:00)
[2023-10-04] MEDS: PRENATAL VITAMINS W/ FOLIC ACID TABLET (FP) PO SCH (10:15)
[2023-10-04] MEDS: SULFAMETHOXAZOLE/TRIMETHOPRIM 800MG/160MG D.S. TABLET PO SCH ×2 (10:16→22:19)
[2023-10-04] MEDS: FAMOTIDINE 20 MG TABLET PO SCH (10:16)
[2023-10-04] MEDS: BENZOCAINE 20 % GEL TUBE MM PRN (17:29)
[2023-10-04] MEDS: traZODone HCL 50 MG TABLET (FP) PO SCH (22:19)
[2023-10-04] MEDS: THIAMINE HCL 100 MG TABLET (FP) PO SCH (22:19)
[2023-10-05 05:34] VITALS: RESP 18
[2023-10-05 09:33] VITALS: BP 104/73; PULSE 67; TEMP 98
[2023-10-05] MEDS: PRENATAL VITAMINS W/ FOLIC ACID TABLET (FP) PO SCH (09:36)
[2023-10-05] MEDS: SULFAMETHOXAZOLE/TRIMETHOPRIM 800MG/160MG D.S. TABLET PO SCH (09:36)
[2023-10-05] MEDS: FAMOTIDINE 20 MG TABLET PO SCH (09:36)
== END 2023-10-05 09:12 | disposition home or self-care (01) | DRG 773 ==
LOC: YASAS 21:34 → Y6N 23:41
PROVIDERS: ADMIT Allergy & Immunology; ATTEND Allergy & Immunology
PROC: HZ2ZZZZ Detoxification Services for Substance Abuse Treatment (ICD-10-PCS; principal; 2023-09-29)
DX: F11.23 Opioid dependence with withdrawal (principal); F10.10 Alcohol abuse, uncomplicated; F17.210 Nicotine dependence, cigarettes, uncomplicated; F19.282 Other psychoactive substance dependence with psychoactive substance-induced sleep disorder; F19.24 Other psychoactive substance dependence with psychoactive substance-induced mood disorder; F32.A Depression, unspecified; K21.9 Gastro-esophageal reflux disease without esophagitis; K08.89 Other specified disorders of teeth and supporting structures; R11.2 Nausea with vomiting, unspecified; Z62.810 Personal history of physical and sexual abuse in childhood; Z87.798 Personal history of other (corrected) congenital malformations
CPT/HCPCS: 36415; 80053; 85027; 86780; 87635; Q0162

== ENCOUNTER 2025-01-20 17:16 | Inpatient (IN) | payer OTHER ==
[2025-01-20 17:48] VITALS: BMI 23.3
[2025-01-20] MEDS ORDERED: MAG HYDROX/AL HYDROX/SIMETH 30 ML UNIT-DOSE CUP PO PRN (19:15)
[2025-01-20] MEDS ORDERED: BISMUTH SUBSALICYLATE 524 MG/30 ML PO PRN (19:15)
[2025-01-20] MEDS ORDERED: BENZONATATE 200 MG CAPSULE PO PRN (19:15)
[2025-01-20] MEDS ORDERED: POLYETHYLENE GLYCOL (HEALTHYLAX) 3350 17 GM PACKET PO PRN (19:15)
[2025-01-20] MEDS ORDERED: BENZOCAINE/MENTHOL (CHLORASEPTIC ) LOZENGE MM PRN (19:15)
[2025-01-20] MEDS ORDERED: guaiFENesin 600 MG TABLET.ER (FP) PO PRN (19:15)
[2025-01-20] MEDS ORDERED: IBUPROFEN 600 MG TABLET (FP) PO PRN (19:15)
[2025-01-20] MEDS ORDERED: LOPERAMIDE HCL 2 MG CAPSULE PO PRN (19:15)
[2025-01-20] MEDS ORDERED: NICOTINE POLACRILEX 2 MG LOZENGE BC PRN (19:15)
[2025-01-20] MEDS ORDERED: IBUPROFEN 400 MG TABLET (FP) PO PRN (19:15)
[2025-01-20] MEDS ORDERED: NICOTINE POLACRILEX 2 MG GUM BUC PRN (19:15)
[2025-01-20] MEDS ORDERED: ONDANSETRON *ODT* 4 MG TABLET SL PRN (19:15)
[2025-01-20] MEDS ORDERED: DICYCLOMINE HCL 10 MG CAPSULE PO PRN (19:15)
[2025-01-20] MEDS ORDERED: NALOXONE (NARCAN) HCL 4 MG/0.1 ML SPRAY NS PRN (19:15)
[2025-01-20] MEDS ORDERED: MAGNESIUM HYDROX 2400MG/30ML ORAL SUSPENSION 30 ML CUP PO PRN (19:15)
[2025-01-20] MEDS ORDERED: ACETAMINOPHEN 325 MG TABLET (FP) PO PRN (19:15)
[2025-01-20] MEDS: THIAMINE 100 MG TABLET PO SCH (22:00)
[2025-01-20] MEDS: MELATONIN 5 MG TABLETS PO SCH (22:00)
[2025-01-20] MEDS: METHOCARBAMOL 500 MG TABLET PO PRN (22:01)
[2025-01-21] MEDS: cloNIDine HCL 0.1 MG TABLET PO SCH (10:06)
[2025-01-21] MEDS: methaDONE HCL 40 MG DISPERSABLE TABLET PO ONE (10:06)
[2025-01-21] MEDS: PRENATAL VITAMINS W/ FOLIC ACID TABLET (FP) PO SCH (10:06)
[2025-01-21] MEDS: diazePAM 5 MG TABLET PO SCH (10:06)
[2025-01-21] MEDS: diazePAM 5 MG TABLET PO PRN (13:08)
[2025-01-21 15:05] LABS: HEMATOCRIT 44.7 % (40.1-51.0); MCHC 31.3 g/dl (32.3-36.5); MEAN CELL VOLUME 87.3 fl (79.0-92.2); MEAN PLT VOLUME 10.2 fl (9.4-12.4); PLATELET COUNT 240 x10^3/uL (163-337); RDW 15.2 % (12.2-16.1)
[2025-01-21 15:06] LABS: CHLORIDE 106 mmol/L (98-107); POTASSIUM 4.7 mmol/L (3.5-5.1); SODIUM 140 mmol/L (136-145)
[2025-01-21 15:09] LABS: CALCIUM 9.6 mg/dL (8.5-10.1)
[2025-01-21 15:10] LABS: ALBUMIN 3.5 g/dl (3.4-5.0); ANION GAP 6 mmol/L (4-13); BLOOD UREA NITROGEN 32.2 mg/dL (7-18); CO2 29 mmol/L (21-32); GLUCOSE,RANDOM 98 mg/dL (74-106)
[2025-01-21 15:13] LABS: BILIRUBIN,TOTAL 0.3 mg/dL (0.2-1); SGOT/AST 26 U/L (15-37); SGPT/ALT 29 U/L (13-61)
[2025-01-21 15:14] LABS: TOT PROT 6.8 g/dl (6.4-8.2)
[2025-01-21 15:16] LABS: ALK PHOS 83 U/L (45-117)
[2025-01-23] MEDS ORDERED: cloNIDine HCL 0.1 MG TABLET PO PRN
[2025-01-23] MEDS: diazePAM 5 MG TABLET PO SCH (06:00)
[2025-01-23 06:16] VITALS: RESP 16
[2025-01-23] MEDS: methaDONE 40 MG, methaDONE 10 MG PO ONE (09:06)
[2025-01-24] MEDS ORDERED: diazePAM 5 MG TABLET PO SCH (06:00)
[2025-01-24 06:11] VITALS: BP 117/82; PULSE 62; TEMP 97.8
[2025-01-25] MEDS ORDERED: diazePAM 5 MG TABLET PO ONE (06:00)
[2025-01-25] MEDS ORDERED: methaDONE 40 MG, methaDONE 20 MG PO ONE (10:00)
== END 2025-01-24 06:35 | disposition home or self-care (01) | DRG 773 ==
LOC: YASAS 17:16 → Y3N 21:01
PROVIDERS: ADMIT Allergy & Immunology; ATTEND Allergy & Immunology
PROC: HZ2ZZZZ Detoxification Services for Substance Abuse Treatment (ICD-10-PCS; principal; 2025-01-20)
DX: F11.23 Opioid dependence with withdrawal (principal); F10.230 Alcohol dependence with withdrawal, uncomplicated; F13.20 Sedative, hypnotic or anxiolytic dependence, uncomplicated; F17.210 Nicotine dependence, cigarettes, uncomplicated; F32.A Depression, unspecified; K21.9 Gastro-esophageal reflux disease without esophagitis
CPT/HCPCS: 36415; 80053; 80305; 80307; 85027; 86780; 93005; 93010